=== PATIENT | male | born 1990 | race American Indian/Alaskan Native ===

== ENCOUNTER 2020-01-03 13:21 | Emergency (ER) | payer SELFPAY ==
[2020-01-03 13:28] VITALS: BP 120/72
[2020-01-03] MEDS ORDERED: LIDOCAINE-MPF (1%) 10 MG/1 ML VIAL 5 ML INFILTRATI ONE (15:01)
[2020-01-03] MEDS ORDERED: AZITHROMYCIN 250 MG TAB PO ONE (15:01)
--- NOTE | 2020-01-03 15:15 | Emergency Department Report ---
ED Male HPI - General Chief complaint: Urogenital-Male Stated complaint: BACK/LEG/PAIN/PENIS SWELLING Time Seen by Provider: 01/03/20 14:35 Source: patient Mode of arrival: Ambulatory Limitations: No Limitations - History of Present Illness Initial comments: Patient is a 29-year-old male presents emergency room with complaints of penile pain and swelling that began 2 days ago. He states that he also has pain in the left side of his groin. He denies any dysuria, penile discharge, lesions, blisters, fever, nausea, vomiting, diarrhea, abdominal pain, urinary retention, hematuria. He states that he is sexually active only with his . He denies any past medical history. No allergies to medications. - Related Data Previous Rx's Medication Instructions Recorded Last Taken Type Acetaminophen/Codeine [Tylenol 1 tab PO Q6H PRN #10 tab 01/03/20 Unknown Rx /Codeine # 3 tab] Doxycycline Hyclate [Doxycycline 100 mg PO BID 10 Days #20 tab 01/03/20 Unknown Rx Hyclate TAB] Allergies Allergy/AdvReac Type Severity Reaction Status Date / Time No Known Allergies Allergy Unverified 01/03/20 13:28 ED Review of Systems ROS: Stated complaint: BACK/LEG/PAIN/PENIS SWELLING Other details as noted in HPI Comment: All other systems reviewed and negative ED Past Medical Hx - Past Medical History Previous Medical History?: No - Surgical History Past Surgical History?: No - Medications Home Medications: Home Medications Medication Instructions Recorded Confirmed Last Taken Type Acetaminophen/Codeine [Tylenol 1 tab PO Q6H PRN #10 tab 01/03/20 Unknown Rx /Codeine # 3 tab] Doxycycline Hyclate [Doxycycline 100 mg PO BID 10 Days #20 tab 01/03/20 Unknown Rx Hyclate TAB] ED Physical Exam - General Limitations: No Limitations General appearance: alert, in no apparent distress - Head Head exam: Present: atraumatic, normocephalic - Eye Eye exam: Present: normal appearance - ENT ENT exam: Present: mucous membranes moist - Respiratory Respiratory exam: Absent: respiratory distress, accessory muscle use - exam: Present: other (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, small left sided inguinal LAD, there is a small amount of edema and ttp to the left epididymal region, no testicular ttp bilaterally, no scrotal edema, normal testicular lie, normal cremasteric reflex, there is edema and ttp surrounding the glans penis, no phimosis or paraphimosis, pt is circumsized) - Neurological Exam Neurological exam: Present: alert, oriented X3 - Psychiatric Psychiatric exam: Present: normal affect, normal mood - Skin Skin exam: Present: warm, dry ED Course Vital Signs 01/03/20 01/03/20 13:25 15:59 Pulse Rate 89 Respiratory 18 18 Rate Blood Pressure 120/72 O2 Sat by Pulse 97 Oximetry ED Medical Decision Making - Lab Data Lab Results 01/03/20 Range/Units 15:17 Urine Color Yellow (Yellow) Urine Turbidity Clear (Clear) Urine pH 5.0 (5.0-7.0) Ur Specific [place] 1.030 (1.003-1.030) Urine Protein 30 mg/dl (Negative) mg/dL Urine Glucose (UA) Neg (Negative) mg/dL Urine Ketones Neg (Negative) mg/dL Urine Blood Neg (Negative) Urine Nitrite Neg (Negative) Urine Bilirubin Neg (Negative) Urine Urobilinogen 4.0 (<2.0) mg/dL Ur Leukocyte Esterase Neg (Negative) Urine WBC (Auto) 1.0 (0.0-6.0) /HPF Urine RBC (Auto) 7.0 (0.0-6.0) /HPF U Epithel Cells (Auto) < 1.0 (0-13.0) /HPF Urine Mucus 3+ /HPF - Medical Decision Making Patient is a 29-year-old male presents emergency room with complaints of penile pain and swelling that began 2 days ago. He states that he also has pain in the left side of his groin. He denies any dysuria, penile discharge, lesions, blisters, fever, nausea, vomiting, diarrhea, abdominal pain, urinary retention, hematuria. He states that he is sexually active only with his . He denies any past medical history. No allergies to medications. Vitals are normal. 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 Examination appears consistent with balanitis and epididymitis. He has no signs of torsion, hernia, hydrocele/varicocele. UA is within normal limits. G/C sent. Patient given azithromycin and ceftriaxone while in the emergency department. Patient given prescription for doxycycline and tylenol #3. Advised patient Please take medication as prescribed. do not drive or operate heavy machinery while taking pain medication. Please go to medical records in 1 week with your driver's license reviewing officer's license for results of your test but you have been treated for these today. Please go to the health department or clinic in order to receive a full STD panel. Please have any partner tested and treated as well. Avoid sexual intercourse. Please follow-up with a urologist. Return to emergency room for any new or worsening symptoms. - Differential Diagnosis orchitis, epididymitis, balanitis, phimosis, paraphimosis, hydrocele, STD Critical care attestation.: If time is entered above; I have spent that time in minutes in the direct care of this critically ill patient, excluding procedure time. ED Disposition Clinical Impression: Balanitis, Epididymitis Disposition: TO HOME OR SELFCARE Is pt being admited?: No Does the pt Need Aspirin: No Condition: Stable Instructions: Epididymitis (ED), Balanitis (ED) Additional Instructions: Please take medication as prescribed. do not drive or operate heavy machinery while taking pain medication. Please go to medical records in 1 week with your driver's license reviewing officer's license for results of your test but you have been treated for these today. Please go to the health department or clinic in order to receive a full STD panel. Please have any partner tested and treated as well. Avoid sexual intercourse. Please follow-up with a urologist. Return to emergency room for any new or worsening symptoms. Prescriptions: Doxycycline Hyclate [Doxycycline Hyclate TAB] 100 mg PO BID 10 Days #20 tab Acetaminophen/Codeine [Tylenol /Codeine # 3 tab] 1 tab PO Q6H PRN #10 tab PRN Reason: Pain , Severe (7-10) Referrals: CAITLIN MAYO MD [Staff Physician] - 2-3 Days MARCOS NOGUERA MD [Staff Physician] - 2-3 Days [facility] [Provider Group] - 2-3 Days [facility] [Outside] - 2-3 Days Forms: STI Treatment and Prevention Time of Disposition: 16:28 Print Language: CZECH
[2020-01-03] MEDS ORDERED: IBUPROFEN 600 MG TAB PO ONE ×2 (15:58→16:00)
[2020-01-03 16:14] LABS: Bilirubin,Urine NEG (Negative); Blood,Urine NEG (Negative); Color,Urine Yellow (Yellow); Mucus,Urine 3+ /HPF
== END 2020-01-03 16:39 | disposition home or self-care (01) ==
LOC: ED 13:21
DX: N48.1 Balanitis (principal); N45.1 Epididymitis; Z79.899 Other long term (current) drug therapy
CPT/HCPCS: 81001; 87591; 96372; 99283; J0696